=== PATIENT | female | born 1985 | race Caucasian/White ===

== ENCOUNTER → 2018-05-17 | Outpatient (CLI) | payer SELFPAY ==
[~2018-05-17] MED LIST: AMOX500C2 PO; POTA10CA43 PO; SULF1TAB7 PO; TRAM50TA2 PO
--- NOTE | 2018-05-17 17:36 | Diagnostic Imaging Report ---
CLINICAL INDICATION: Patient has lump behind the right ear since Monday. EXAM: Limited focused ultrasound of the soft tissue posterior to the right ear. COMPARISON: None. FINDINGS AND IMPRESSION: There is a 1.6 cm x 0.6 cm x 0.9 cm circumscribed hypoechoic area within the subcutaneous tissue, which is noted posterior to the ear. This is in the area of concern. There is no significant Doppler flow seen on the given images. Considerations may include a lymph node versus sebaceous cyst versus a complex fluid collection or cyst. Dictated by: Dictated on workstation # [id number]
== END ==
LOC: RAD 16:46
PROVIDERS: ATTEND Internal Medicine
DX: R22.0 Localized swelling, mass and lump, head (principal)
CPT/HCPCS: 76536

== ENCOUNTER → 2018-11-22 | Outpatient (CLI) | payer BC ==
--- NOTE | 2018-11-22 08:50 | Diagnostic Imaging Report ---
Indication: Bilateral palpable lumps. Correlation is made with prior mammogram from 03/14/2016. 2-D and 3-D bilateral diagnostic mammography was performed with CAD. Both breasts are heterogeneously dense, limiting the sensitivity of mammography. The BB markers were placed in areas of palpable abnormality. This corresponds to the medial right breast as well as the upper outer left breast. A biopsy clip in the upper-outer left breast is noted. Parenchymal pattern is stable. Circumscribed density in the medial right breast is noted and appears similar to prior study. The left breast appears stable. No suspicious microcalcifications are seen. Impression: BI-RADS zero Stable bilateral mammograms. There is a circumscribed density just deep to the BB marker in the medial aspect of the right breast. This has benign features but further evaluation of this area with ultrasound is recommended. Ultrasound evaluation of the area of palpable abnormality in the upper-outer left breast is also recommended and will be performed this morning. ACR BI-RADS Category 0: Incomplete. (Needs additional imaging evaluation). Result letter will be mailed to the patient. Note: At least 10% of breast cancer is not imaged by mammography. Dictated by: Dictated on workstation # [id number]
--- NOTE | 2018-11-22 10:36 | Diagnostic Imaging Report ---
Indication: Bilateral breast lumps. Correlation is made with diagnostic mammogram earlier same day as well as prior bilateral breast ultrasound from 03/14/2016. Macrolobulated circumscribed solid mass at the 2 o'clock location of the left breast 7 cm from the nipple is again noted measuring 2.3 x 0.8 x 1.3 cm compared with 2.6 x 1.1 x 1.4 cm. Small nodule left breast 3 o'clock location 7 cm from the nipple is stable at approximately 6 mm x 3 mm x 8 mm. On the right at the 3 o'clock location, 4 cm from the nipple, there is a circumscribed ovoid solid mass corresponding to the palpable abnormality. This measures 1.9 x 1.4 x 0.7 cm. This compares with 2.1 x 1.6 x 1.0 cm on prior exam. No new mass is detected. 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 These do correspond to the areas of palpable abnormality. These have shown greater than 2 years of stability. No further followup is needed. Dictated by: Dictated on workstation # [id number]
== END ==
LOC: RAD 08:02
PROVIDERS: ATTEND Obstetrics & Gynecology
DX: N63.21 Unspecified lump in the left breast, upper outer quadrant (principal); N63.10 Unspecified lump in the right breast, unspecified quadrant
CPT/HCPCS: 76642; 77066

== ENCOUNTER → 2019-03-28 | Outpatient (CLI) | payer BC ==
--- NOTE | 2019-03-28 13:10 | Diagnostic Imaging Report ---
INDICATION: Pelvic pain TECHNIQUE: Multiple real time neil scale sonographic images were obtained of the pelvis transabdominally. CORRELATION STUDY: None FINDINGS: UTERUS: 7.9 x 4.8 x 2.7 cm. The uterus appears unremarkable. ENDOMETRIUM: 3 mm. The endometrium appearing unremarkable. RIGHT OVARY: Not visualized, likely obscured by bowel gas. LEFT OVARY: 3.9 x 3.8 x 2.2 cm The left ovary contains small, likely physiologic cysts and/or follicles. No concerning mass. Normal blood flow. No significant free pelvic fluid. IMPRESSION: 1. Unremarkable appearing pelvic ultrasound examination. 2. Nonvisualization right ovary, likely obscured by bowel. Dictated by: Dictated on workstation # [id number]
== END ==
LOC: RAD 12:20
PROVIDERS: ATTEND Nurse Practitioner Family
DX: R10.2 Pelvic and perineal pain (principal)
CPT/HCPCS: 76856

== ENCOUNTER 2020-10-22 19:14 | Emergency (ER) | payer BC ==
[~2020-10-22] VITALS: Ht 182.8 cm; Wt 68.0 kg
[~2020-10-22 19:14] MED LIST changes: +TRM50T PO
[2020-10-22 19:30] VITALS: BP 152/91
[2020-10-22] MEDS ORDERED: ALPRAZolam 0.5 MG (XANAX) TAB ONE (19:31)
--- NOTE | 2020-10-22 19:43 | ED General ---
General Stated Complaint: SOA/COUGH Source of Information: Patient Exam Limitations: No Limitations History of Present Illness Date Seen by Provider: Oct 22, 2020 Time Seen by Provider: 19:41 Initial Comments To ER with reports of a few days of slight cough and nasal congestion. No fevers or chills. This evening she developed some palpitations. She felt as though she was unable to catch her breath.. This sensation has persisted for about 3 hours now. She feels very anxious. Timing/Duration: 3-4 Days Severity: Moderate Associated Systoms: No Chest Pain, No Cough, No Headaches, No Malaise, No Nausea/Vomiting, No Shortness of Air, No Weakness Allergies and Home Medications Allergies Coded Allergies: pseudoephedrine (Unverified Allergy, Severe, ANAPHYLAXIS, 08/19/14) Home Medications Amoxicillin 500 Mg Capsule, 500 MG PO TID Prescribed by: SARAI LEON on 02/24/162227 Tramadol HCl 50 Mg Tablet, 50 MG PO Q4H PRN for PAIN Prescribed by: SARAI LEON on 02/24/162227 Patient Home Medication List Home Medication List Reviewed: Yes Review of Systems Review of Systems Constitutional: see HPI EENTM: see HPI, nose congestion Respiratory: cough Cardiovascular: no symptoms reported Genitourinary: no symptoms reported Musculoskeletal: no symptoms reported Skin: no symptoms reported Psychiatric/Neurological: No Symptoms Reported Hematologic/Lymphatic: No Symptoms Reported Immunological/Allergic: no symptoms reported Past Ywsdwzp-Nlokrw-Jgqojz Hx Patient Social History Recent Foreign Travel: No Contact w/Someone Who Travel: No Past Medical History Eye Surgery Loss of Vision: Left Family Medical History Diabetes mellitus Physical Exam Vital Signs Vital Signs - First Documented Capillary Refill : Height, Weight, BMI Height: 6'0.00" Weight: 150lbs. 0.0oz. 68.729498kp; 20.3 BMI Method:Stated General Appearance: No Apparent Distress, WD/WN, Anxious (tearful) Eyes: Bilateral Eye Normal Inspection, Bilateral Eye PERRL, Bilateral Eye EOMI Neck: Full Range of Motion, Normal Inspection Respiratory: No Accessory Muscle Use, No Respiratory Distress Cardiovascular: Regular Rate, Rhythm, Normal Peripheral Pulses, Other (normal sinus rate of 90s) Gastrointestinal: Normal Bowel Sounds, Non Tender, Soft Extremity: Normal Capillary Refill, Normal Inspection Neurologic/Psychiatric: Alert, Oriented x3 Skin: Normal Color, Warm/Dry Progress/Results/Core Measures Suspected Sepsis SIRS Temperature: Pulse: Respiratory Rate: Laboratory Tests 10/22/20 19:34: White Blood Count 6.3 Blood Pressure / Mean: Laboratory Tests 10/22/20 19:34: Creatinine 0.93, Platelet Count 230, Total Bilirubin 0.3 Results/Orders Lab Results Laboratory Tests Test 10/22/20 19:34 Range/Units White Blood Count 6.3 4.3-11.0 10^3/uL Red Blood Count 4.52 3.80-5.11 10^6/uL Hemoglobin 14.0 11.5-16.0 g/dL Hematocrit 40 35-52 % Mean Corpuscular Volume 89 80-99 fL Mean Corpuscular Hemoglobin 31 25-34 pg Mean Corpuscular Hemoglobin Concent 35 32-36 g/dL Red Cell Distribution Width 11.9 10.0-14.5 % Platelet Count 230 130-400 10^3/uL Mean Platelet Volume 10.3 9.0-12.2 fL Immature Granulocyte % (Auto) 0 % Neutrophils (%) (Auto) 40 L 42-75 % Lymphocytes (%) (Auto) 41 12-44 % Monocytes (%) (Auto) 8 0-12 % Eosinophils (%) (Auto) 9 0-10 % Basophils (%) (Auto) 1 0-10 % Neutrophils # (Auto) 2.5 1.8-7.8 10^3/uL Lymphocytes # (Auto) 2.6 1.0-4.0 10^3/uL Monocytes # (Auto) 0.5 0.0-1.0 10^3/uL Eosinophils # (Auto) 0.6 H 0.0-0.3 10^3/uL Basophils # (Auto) 0.1 0.0-0.1 10^3/uL Immature Granulocyte # (Auto) 0.0 0.0-0.1 10^3/uL D-Dimer 0.36 0.00-0.49 UG/ML Sodium Level 140 135-145 MMOL/L Potassium Level 3.8 3.6-5.0 MMOL/L Chloride Level 104 98-107 MMOL/L Carbon Dioxide Level 28 21-32 MMOL/L Anion Gap 8 5-14 MMOL/L Blood Urea Nitrogen 19 H 7-18 MG/DL Creatinine 0.93 0.60-1.30 MG/DL Estimat Glomerular Filtration Rate > 60 BUN/Creatinine Ratio 20 Glucose Level 94 70-105 MG/DL Calcium Level 9.2 8.5-10.1 MG/DL Corrected Calcium 9.1 8.5-10.1 MG/DL Total Bilirubin 0.3 0.1-1.0 MG/DL Aspartate Amino Transf (AST/SGOT) 22 5-34 U/L Alanine Aminotransferase (ALT/SGPT) 19 0-55 U/L Alkaline Phosphatase 48 40-136 U/L C-Reactive Protein High Sensitivity 0.03 0.00-0.50 MG/DL Total Protein 7.0 6.4-8.2 GM/DL Albumin 4.1 3.2-4.5 GM/DL Serum Test, Qualitative NEGATIVE NEGATIVE Coronavirus 2019 ([facility]) Negative Negative Micro Results Microbiology 10/22/20 Influenza Types A,B Antigen ([facility]) - Final, Complete My Orders Orders - AREN STEPHENS APRN Alprazolam Tablet (Xanax Tablet) (10/22/20 19:45) Alprazolam Tablet (Xanax Tablet) (10/22/20 19:31) Cbc With Automated Diff (10/22/20 19:40) Hs C Reactive Protein (10/22/20 19:40) Comprehensive Metabolic Panel (10/22/20 19:40) Fibrin Degradation Products (10/22/20 19:40) Ed Iv/Invasive Line Start (10/22/20 19:40) Chest 1 View, Ap/Pa Only (10/22/20 19:40) Hcg,Qualitative Serum (10/22/20 19:40) Covid 19 Inhouse Test (10/22/20 19:43) Influenza A And B Antigens (10/22/20 19:43) Medications Given in ED Current Medications Medications Dose Ordered Sig/Oma Route Start Time Stop Time Status Last Admin Dose Admin Alprazolam 0.5 mg ONCE ONCE PO 10/22/20 19:45 10/22/20 19:46 DC 10/22/20 19:38 0.5 MG Vital Signs/I&O 10/22/20 10/22/20 19:30 19:30 Temp 36.3 Pulse 90 Resp 16 B/P (MAP) 152/91 (111) O2 Delivery Room Air Room Air Capillary Refill : Departure Impression Primary Impression: Palpitations Disposition: 01 HOME, SELF-CARE Condition: Stable Departure-Patient Inst. Decision time for Depature: 20:08 Referrals: DAVID SEXTON DO (PCP/Family) Primary Care Physician Patient Instructions: Palpitations (DC) Add. Discharge Instructions: 1. Return to ER for any concerns 2. Follow-up with your doctor next week 3. AREN STEPHENS APRN Oct 22, 2020 19:43
[2020-10-22] MEDS ORDERED: ALPRAZolam 0.25 MG (XANAX) TAB PO ONE (19:45)
[2020-10-22 19:47] LABS: BASOPHILS # (AUTO) 0.1 10^3/uL (0.0-0.1); BASOPHILS % (AUTO) 1 % (0-10); EOSINOPHILS # (AUTO) 0.6 10^3/uL (0.0-0.3); EOSINOPHILS % (AUTO) 9 % (0-10); HEMATOCRIT 40 % (35-52); LYMPHOCYTES # (AUTO) 2.6 10^3/uL (1.0-4.0); LYMPHOCYTES % (AUTO) 41 % (12-44); MEAN CORPUSCULAR HEMOGLOBIN 31 pg (25-34); MEAN CORPUSCULAR HGB CONC 35 g/dL (32-36); MEAN CORPUSCULAR VOLUME 89 fL (80-99); MEAN PLATELET VOLUME 10.3 fL (9.0-12.2); MONOCYTES # (AUTO) 0.5 10^3/uL (0.0-1.0); MONOCYTES % (AUTO) 8 % (0-12); NEUTROPHILS # (AUTO) 2.5 10^3/uL (1.8-7.8); NEUTROPHILS % (AUTO) 40 % (42-75); PLATELET COUNT 230 10^3/uL (130-400); WHITE BLOOD COUNT 6.3 10^3/uL (4.3-11.0)
[2020-10-22 20:05] LABS: ALANINE AMINOTRANSFERASE 19 U/L (0-55); ALBUMIN 4.1 GM/DL (3.2-4.5); ALKALINE PHOSPHATASE 48 U/L (40-136); BILIRUBIN,TOTAL 0.3 MG/DL (0.1-1.0); BUN/CREATININE RATIO 20; CALCIUM 9.2 MG/DL (8.5-10.1); CARBON DIOXIDE 28 MMOL/L (21-32); CHLORIDE 104 MMOL/L (98-107); CREATININE SERUM 0.93 MG/DL (0.60-1.30); GFR ESTIMATED > 60; GLUCOSE 94 MG/DL (70-105); POTASSIUM 3.8 MMOL/L (3.6-5.0); SODIUM 140 MMOL/L (135-145)
--- NOTE | 2020-10-22 20:11 | Diagnostic Imaging Report ---
INDICATION: Shortness of breath. FINDINGS: The heart size, mediastinal configuration and pulmonary vascularity are within normal limits. There is no pleural effusion, pneumothorax or pneumonia. The osseous structures are unremarkable. IMPRESSION: No acute cardiopulmonary abnormality. Dictated by: Dictated on workstation # [id number]
== END 2020-10-22 20:15 | disposition home or self-care (01) ==
LOC: EDUNIT# 19:14 → ER 19:18
DX: R00.2 Palpitations (principal); F41.9 Anxiety disorder, unspecified; Z83.3 Family history of diabetes mellitus; Z88.8 Allergy status to other drugs, medicaments and biological substances; Z20.828 Contact with and (suspected) exposure to other viral communicable diseases
CPT/HCPCS: 71045; 80053; 84703; 85025; 85379; 86141; 87804; 99284; U0002; 36415; 87635

== ENCOUNTER 2021-05-14 01:57 | Emergency (ER) | payer BC ==
[~2021-05-14] VITALS: Ht 183 cm; Wt 68.0 kg
[2021-05-14 02:08] VITALS: BP 141/105
[2021-05-14] MEDS ORDERED: ORPHENADRINE 60 MG/2 ML (NORFLEX) AMP (ED ONLY) IM ONE (02:30)
[2021-05-14] MEDS ORDERED: CYCL10TA9 PO (02:30)
[2021-05-14] MEDS ORDERED: PRD20T PO (02:30)
[2021-05-14] MEDS ORDERED: KETOROLAC 60 MG/2 ML VIAL IM ONE (02:30)
--- NOTE | 2021-05-14 02:31 | ED General ---
General Chief Complaint: General Problems/Pain Stated Complaint: FACE PAIN Nursing Triage Note: Pt awake, alert, oriented, ambulated into ED room 5 from triage area without difficulty, accompanied by . Pt reports waking up to severe pain to the right side of her face et dental pain. States that she was recently seen et diagnosed with trigeminal neuralgia, but the pain is more intense now et her tooth wasn't hurting before. MRI scheduled for Monday. Source of Information: Patient History of Present Illness Date Seen by Provider: May 14, 2021 Time Seen by Provider: 02:12 Initial Comments PT ARRIVES VIA POV FROM HOME WITH FEMALE S.O. C/O ONGOING RIGHT SIDED FACIAL PAIN FOR THE LAST COUPLE OF WEEKS AND IS WORSE THIS WEEK PAIN IS BEHIND RIGHT EAR, IN FRONT OF RIGHT EAR, AND MOST OF RIGHT CHEEK AREA STATES NORMALLY THE PAIN IS VERY SHARP AND "HITS RANDOMLY" AND NORMALLY LASTS FOR 2-3 MINUTES AND GOES AWAY TONIGHT THE PAIN BEGAN AT 2009 AND HAS CONTINUED--HAS NOT BEEN ABLE TO SLEEP DUE TO PAIN NOTHING WORSENS PAIN--NO PAIN WITH OPENING OF MOUTH OR CHEWING ICE DOES HELP A LITTLE NO SWELLING TO FACE NO RASH NO VISION CHANGES NO HEARING CHANGES C/O PAIN TO RIGHT UPPER MOLAR TONIGHT NO FEVER NO URI/SINUS SYMPTOMS NO HEADACHE NO PARESTHESIAS OR MOTOR DEFICITS NO RECENT ILLNESS STATES SHE WENT TO THE DENTIST ON Monday05/10/21, THINKING IT WAS A TOOTH PROBLEM, EVEN THOUGH HER TEETH WERE NOT REALLY HURTING AT THE TIME STATES SHE HAD XRAYS, AND EXAM AND STATES THAT THE DENTIST TOLD HER THAT HER TEETH WERE FINE. SHE HAS HAD PRIOR PROBLEMS WITH TEETH AND HAS HAD 7 TEETH PULLED IN THE PAST, BUT NO RECENT EXTRACTIONS. SAW DR. SEXTON'S RECAPPER ON MONDAY, AND WAS TOLD THAT HER SYMPTOMS WERE SUSPICIOUS FOR TRIGEMINAL NEURALGIA, AND WAS PRESCRIBED CARBAMAZEPINE 200 MG 1 BID--HAS HAD A TOTAL OF 4 PILLS---NO IMPROVEMENT IN SYMPTOMS HAS NOT TAKEN ANYTHING ELSE FOR PAIN HAS MRI SCHEDULED FOR NEXT Monday05/19/21 FOR THIS NO HISTORY OF SIMILAR NO CHRONIC ILLNESSES NORMALLY DOES NOT TAKE ANY PRESCRIPTION MEDICATIONS, ONLY OTC VITAMINS AND OCCASIONALLY ALLERGY MEDICATIONS PCP: DR. SEXTON Allergies and Home Medications Allergies Coded Allergies: pseudoephedrine (Unverified Allergy, Severe, ANAPHYLAXIS, 08/19/14) Home Medications Amoxicillin 500 Mg Capsule, 500 MG PO TID Prescribed by: SARAI LEON on 02/24/162227 Cyclobenzaprine HCl 10 Mg Tablet, 10 MG PO Q8H PRN for SPASMS Prescribed by: SUDHA NATHAN on 05/14/21229 Prednisone 20 Mg Tab, 40 MG PO DAILY Prescribed by: SUDHA NATHAN on 05/14/21229 Tramadol HCl 50 Mg Tablet, 50 MG PO Q4H PRN for PAIN Prescribed by: SARAI LEON on 02/24/162227 Patient Home Medication List Home Medication List Reviewed: Yes Review of Systems Review of Systems Constitutional: no symptoms reported; No chills, No diaphoresis, No fever EENTM: see HPI Respiratory: no symptoms reported Cardiovascular: no symptoms reported Gastrointestinal: no symptoms reported Genitourinary: no symptoms reported : No LMP: Apr 23, 2021 Musculoskeletal: no symptoms reported; No neck pain Skin: no symptoms reported; No rash Psychiatric/Neurological: No Symptoms Reported; Denies Headache, Denies Numbness, Denies Paresthesia, Denies Tingling, Denies Weakness Hematologic/Lymphatic: No Symptoms Reported Immunological/Allergic: no symptoms reported Past Cfridvk-Gxykzj-Hdzsta Hx Patient Social History Tobacco Use?: No Use of E-Cig and/or Vaping dev: No Substance use?: No Alcohol Use?: Yes Alcohol Frequency: Once in a while Pt feels they are or have been: No Immunizations Up To Date Influenza Vaccine Up-to-Date: No; Not Current Seasonal Allergies Seasonal Allergies: Yes Past Medical History Surgeries: Yes (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 0.0oz. 68.455434oj; 20.00 BMI Method:Stated General Appearance: No Apparent Distress, WD/WN, Other (WEARS A PATCH OVER LEFT EYE) HEENT: TMs Normal, Normal ENT Inspection, Pharynx Normal, Moist Mucous Membranes, Other (NO TENDERNESS TO FACE, OR NAGI-AURICULAR AREA. NO TRISMUS. NO CLICKING OR MAL-ALIGNMENT OF JAW/TMJ. RIGHT UPPER FIRST MOLAR IS TENDER TO PERCUSSION, BUT TOOTH ITSELF APPEARS NORMAL AND GUM TISSUE IS NORMAL. NO OBVIOUS DENTAL CARIES OR INFECTION. NO SWELLING TO FACE OR MANDIBLE. NO RASH TO AREA. ) Neck: Normal Inspection Respiratory: Normal Breath Sounds Cardiovascular: Regular Rate, Rhythm Neurologic/Psychiatric: Alert, Oriented x3, No Motor/Sensory Deficits, Normal Mood/Affect, car repairer helper II-XII Norm as Tested Skin: Normal Color, Warm/Dry; No Rash; Tattoos/Piercings Progress/Results/Core Measures Suspected Sepsis SIRS Temperature: Pulse: 80 Respiratory Rate: 20 Blood Pressure 141 /105 Mean: 117 Results/Orders My Orders Orders - SUDHA NATHAN DO Ketorolac Injection (Toradol Injection) (05/14/21 02:30) Orphenadrine Inj (Ed Only) (Norflex Inje (05/14/21 02:30) Medications Given in ED Current Medications Medications Dose Ordered Sig/Oma Route Start Time Stop Time Status Last Admin Dose Admin Ketorolac Tromethamine 60 mg ONCE ONCE IM 05/14/21 02:30 05/14/21 02:31 DC 05/14/21 02:35 60 MG Orphenadrine Citrate 60 mg ONCE ONCE IM 05/14/21 02:30 05/14/21 02:31 DC 05/14/21 02:38 60 MG Vital Signs/I&O 05/14/21 05/14/21 02:08 02:35 Temp 36.9 36.9 Pulse 80 Resp 20 B/P (MAP) 141/105 (117) Pulse Ox 99 O2 Delivery Room Air Capillary Refill : Blood Pressure Mean: 117 Progress Note : Progress Note GIVEN TORADOL AND NORFLEX Departure Impression Primary Impression: Right sided facial pain Additional Impression: POSSIBLE TRIGEMINAL NEURALGIA Disposition: HOME, SELF-CARE Condition: Stable Departure-Patient Inst. Decision time for Depature: 02:29 Referrals: DAVID SEXTON DO (PCP/Family) Primary Care Physician Patient Instructions: Trigeminal Neuralgia Add. Discharge Instructions: CONTINUE CARBAMAZEPINE PRESCRIBED ICE TO AREA AT 20 MINUTE INTERVALS FOLLOW UP WITH DR. SEXTON'S OFFICE TODAY FOR FURTHER CARE All discharge instructions reviewed with patient and/or family. Voiced understanding. Scripts Cyclobenzaprine HCl (Cyclobenzaprine HCl) 10 Mg Tablet 10 MG PO Q8H PRN for SPASMS, #15 TAB 0 Refills Prov: SUDHA NATHAN DO 05/14/21 Prednisone (Prednisone) 20 Mg Tab 40 MG PO DAILY, #6 TAB 0 Refills Prov: SUDHA NATHAN DO 05/14/21 SUDHA NATHAN DO May 14, 2021 02:31
== END 2021-05-14 03:10 | disposition home or self-care (01) ==
LOC: EDUNIT# 01:57 → ER 02:00
DX: R51.9 Headache, unspecified (principal)
CPT/HCPCS: 99284

== ENCOUNTER → 2021-05-21 | Outpatient (CLI) | payer BC ==
[~2021-05-21] MED LIST changes: +CYCL10TA9 PO; +GADOBUTROL 7.5 MMOL/7.5 ML (GADAVIST) VIAL IV ONE; +PRD20T PO
--- NOTE | 2021-05-21 08:44 | Diagnostic Imaging Report ---
INDICATION: Suspicion for metallic orbital foreign body undergoing a pre-MRI evaluation. No metallic opaque orbital foreign body. IMPRESSION: Negative Dictated by: Dictated on workstation # [id number]
--- NOTE | 2021-05-21 10:58 | Diagnostic Imaging Report ---
PROCEDURE: MR imaging of the brain with and without contrast. TECHNIQUE: Multiplanar, multisequence MR imaging of the brain was performed with and without contrast. INDICATION: Trigeminal neuralgia, severe head and facial pain. COMPARISON: None available. FINDINGS: No restricted diffusion that would indicate acute infarct. No gradient blooming hypointensities that would suggest vascular malformation or hemorrhage. The neil-white matter differentiation is normal, and there are no features of neil matter heterotopia. No FLAIR hyperintensities within the deep white matter that would suggest demyelinating disease. There is no mass or extra-axial fluid collection along the cisternal portions of the trigeminal nerves. The root entry zones of the trigeminal nerves are normal in appearance as well. There is no mass within Meckel's cave on either side. On post-contrast imaging, there is no abnormal enhancement along the trigeminal nerves on either side. Additionally, there is no pathologic enhancement elsewhere within the brain or meninges. The pituitary and pineal regions are normal. No sagging of the brainstem. Low-lying cerebellar tonsils do not have a peg-shaped configuration No middle ear fluid. Mastoid air cells are clear. Paranasal sinuses are clear. Left globe is asymmetrically small, and there is no lens likely from old trauma or congenital anomaly. Major arterial flow voids are preserved. IMPRESSION: 1. No mass lesion or pathologic enhancement associated with the bilateral trigeminal nerves. 2. No acute intracranial process. 3. Low-lying cerebellar tonsils which do not have a morphology that would suggest Chiari malformation. 4. Abnormal left globe may be due to sequelae of old trauma or congenital in nature. Dictated by: Dictated on workstation # [id number]
== END ==
LOC: RAD 05-19 10:15
PROVIDERS: ATTEND Family Medicine
DX: G50.0 Trigeminal neuralgia (principal)
CPT/HCPCS: 70553

== ENCOUNTER → 2021-09-28 | Outpatient (REF) ==
[~2021-09-28] MED LIST changes: +CYCL10TA25 PO; -CYCL10TA9 PO; -GADOBUTROL 7.5 MMOL/7.5 ML (GADAVIST) VIAL IV ONE
--- NOTE | 2021-09-28 09:57 | Diagnostic Imaging Report ---
INDICATION: Fall with left wrist pain and contusion. FINDINGS: 3 views. Radiocarpal joints in good alignment. Carpal bones show no evidence of subluxation. There are no fractures. No evidence of osteonecrosis. IMPRESSION: Normal left wrist. Dictated by: Dictated on workstation # [id number]
== END ==
LOC: OCC 09:24
PROVIDERS: ATTEND Family Medicine
DX: M25.532 Pain in left wrist (principal)
CPT/HCPCS: 73110

== ENCOUNTER → 2021-10-26 | Outpatient (REF) ==
--- NOTE | 2021-10-26 08:55 | Diagnostic Imaging Report ---
Left wrist at 842 INDICATION: Wrist pain, follow-up ulnar fracture. 3 views were obtained. The previous left wrist exam of 09/28/2021 failed to show any sign of an acute bony abnormality. Particularly there is no clear evidence for a fracture of the ulna. On this exam the ulna does not appear to have changed significantly since the prior exam. There is cyst formation within the ulnar styloid and there is ulnar minus variance. However there is no acute abnormality identified. The overall appearance of the left wrist itself is also stable. There is no new fracture or acute bony abnormality identified. The soft tissues are unremarkable. IMPRESSION: 1. The appearance of the left wrist is stable when compared to the prior exam. There is no acute or subacute bony abnormality appreciated. 2. If clinical concern regarding an underlying abnormality persists, then MRI would be recommended for further study. Dictated by: Dictated on workstation # [id number]
== END ==
LOC: OCC 08:04
PROVIDERS: ATTEND Family Medicine
DX: M25.532 Pain in left wrist (principal)
CPT/HCPCS: 73110

== ENCOUNTER 2021-10-28 08:30 | Outpatient (RCR) | payer OTHER | END 2021-10-29 | disposition home or self-care (01) | PROVIDERS: ATTEND Family Medicine | DX: S60.212D Contusion of left wrist, subsequent encounter (principal); X58.XXXD Exposure to other specified factors, subsequent encounter ==

== ENCOUNTER 2021-11-25 11:06 | Outpatient (RCR) | payer OTHER | END 2021-11-25 13:55 | disposition home or self-care (01) | PROVIDERS: ATTEND Family Medicine | DX: S60.212D Contusion of left wrist, subsequent encounter (principal); W19.XXXD Unspecified fall, subsequent encounter ==

== ENCOUNTER → 2021-12-03 | Outpatient (REF) ==
--- NOTE | 2021-12-03 15:21 | Diagnostic Imaging Report ---
EXAMINATION: Magnetic resonance imaging of the left wrist without contrast DATE: December 03, 2021. COMPARISON: Left wrist radiographs October 26, 2021. HISTORY: 36-year-old female, fall. Left wrist pain. TECHNIQUE: Magnetic Resonance Imaging sequences were performed of the wrist without contrast. FINDINGS: TRIANGULAR FIBROCARTILAGE COMPLEX: The triangular fibrocartilage complex is grossly intact. INTRINSIC LIGAMENTS: The scapholunate and lunotriquetral ligaments are grossly intact. JOINTS: The radiocarpal, intercarpal, and distal radioulnar joints are intact. There is no joint effusion. CARPAL TUNNEL: The flexor retinaculum is unremarkable. The flexor digitorum superficialis and profundus are intact. The median nerve is unremarkable. FLEXOR TENDONS: The flexor carpi ulnaris, flexor pollicis longus and carpi radialis are intact. EXTENSOR TENDONS: There is a small amount of fluid in the extensor carpi ulnaris tendon sheath consistent with tenosynovitis. There is no identified tear of an extensor tendon. There is minimal fluid in the second extensor compartment tendon sheath which may reflect low-level tenosynovitis. BONE: There is edema-like signal in the hamate with an essentially nondisplaced fracture involving the base of the hook of the hamate on sagittal T2 fat saturation sequence image 8 and axial T2 fat saturation sequence image 17. There is a normal variant type II lunate facet. There is prominent negative ulnar variance. There is no evidence of osteonecrosis. There is a subcortical cyst in the dorsal aspect of the distal ulna. BURSAE AND SOFT TISSUES: The bursae and soft tissues surrounding the wrist are within normal limits. IMPRESSION: 1. Acute nondisplaced fracture involving the base of the hook of the hamate. 2. Extensor carpi ulnaris tenosynovitis and minimal fluid in the second extensor compartment tendon sheaths which also may reflect tenosynovitis. Negative for tendon tear. 3. Prominent negative ulnar variance. 4. Grossly intact triangular fibrocartilage complex and intrinsic wrist ligaments. Dictated by: Dictated on workstation # [id number]
== END ==
LOC: OCC 12:38
PROVIDERS: ATTEND Family Medicine
DX: S62.145A Nondisplaced fracture of body of hamate [unciform] bone, left wrist, initial encounter for closed fracture (principal); W19.XXXA Unspecified fall, initial encounter
CPT/HCPCS: 73221

== ENCOUNTER 2022-01-19 12:54 | Outpatient (RCR) | payer OTHER | END 2022-01-27 | disposition home or self-care (01) | DX: M25.532 Pain in left wrist (principal); M79.642 Pain in left hand; M77.8 Other enthesopathies, not elsewhere classified; W19.XXXA Unspecified fall, initial encounter ==

== ENCOUNTER → 2022-04-28 | Outpatient (RCR) | payer OTHER | END | disposition home or self-care (01) | PROVIDERS: ATTEND Orthopaedic Surgery Hand Surgery | DX: S62.155D Nondisplaced fracture of hook process of hamate [unciform] bone, left wrist, subsequent encounter for fracture with routine healing (principal); M65.9 Synovitis and tenosynovitis, unspecified ==

== ENCOUNTER 2022-05-26 10:23 | Outpatient (RCR) | payer OTHER | END 2022-05-29 | disposition home or self-care (01) | PROVIDERS: ATTEND Orthopaedic Surgery Hand Surgery | DX: S62.155D Nondisplaced fracture of hook process of hamate [unciform] bone, left wrist, subsequent encounter for fracture with routine healing (principal); M65.9 Synovitis and tenosynovitis, unspecified; W19.XXXD Unspecified fall, subsequent encounter ==

== ENCOUNTER → 2022-12-09 | Outpatient (CLI) | payer BC ==
--- NOTE | 2022-12-09 11:27 | Diagnostic Imaging Report ---
EXAMINATION: Left knee MRI without contrast, 12/09/2022. TECHNIQUE: Multiplanar, multisequence xoc-hotyvxmt-gxalugph MRI of the left lower extremity was accomplished. INDICATION: Injury in September 2022. Left knee pain. FINDINGS: The extensor mechanism appears intact. The ACL and PCL are intact. The MCL is intact. Lateral collateral ligamentous complex is unremarkable. There is a horizontal oblique tear within the posterior horn of the medial meniscus extending down to the tibial surface and into the meniscal body. The lateral meniscus is intact. Cartilage within the medial and lateral joint compartments is preserved. There is fissuring of the cartilage overlying the patellar apex extending into the lateral facet. There is a small underlying joint effusion. Edema is noted throughout the visualized aspects of the lateral head of the gastrocnemius muscle. This is most likely due to a muscular strain. The popliteus tendon and muscle are unremarkable. IMPRESSION: 1. Tear of the posterior horn of the medial meniscus. Lateral meniscus intact. 2. Ligaments and tendons intact. 3. Mild degenerative changes as above. 4. Likely muscular strain along the visualized lateral head of the gastrocnemius muscle. Dictated by: Dictated on workstation # [id number]
== END ==
LOC: RAD 10:15
PROVIDERS: ATTEND Nurse Practitioner Family
DX: S83.242A Other tear of medial meniscus, current injury, left knee, initial encounter (principal); M17.12 Unilateral primary osteoarthritis, left knee
CPT/HCPCS: 73721